=== PATIENT | female | born 1955 | race Caucasian/White ===

== ENCOUNTER 2022-04-02 21:27 | Emergency (ER) | payer MEDICARE, SELFPAY ==
[2022-04-02 21:29] VITALS: BP 104/80; PULSE 140; RESP 16; TEMP 36.7; O2SAT 98; BMI 22.7
--- NOTE | 2022-04-02 22:05 | CT_ITS ---
STUDY: CT ABDOMEN AND PELVIS WITH CONTRAST REASON FOR EXAM: Female, 66 years old. Left lower quadrant pain. Question diverticulitis. RADIATION DOSAGE (If Supplied By Facility): CTDIvol = ( 15.64 ) mGy, DLP = ( 846.62 ) mGycm TECHNIQUE: Transaxial images were obtained from the dome of the diaphragm to the symphysis pubis without oral contrast. IV 100mL Isovue-300 was administered. Sagittal and coronal images were reconstructed. Individualized dose optimization techniques were used for this CT. COMPARISON: None. FINDINGS: The visualized lung bases are unremarkable. The visualized portions of the heart are within normal limits. Normal liver. Normal gallbladder and extrahepatic biliary system. Normal spleen. Normal pancreas. Normal bilateral adrenal glands. Normal right kidney. Normal left kidney. Normal visualized stomach. Normal small intestine. Is sigmoid diverticula with associated wall thickening and stranding of the mesentery consistent with uncomplicated diverticulitis. There is no abscess or perforation. The proximal colon is unremarkable. There is non-visualization of the appendix. There is diffuse atherosclerotic calcification of the abdominal aorta, without a demonstrated aneurysm. Normal inferior vena cava. Normal retroperitoneum. Thick walled urinary bladder. Fibroid uterus. No adnexal mass or pelvic lymphadenopathy. No free air or free fluid is within the peritoneal cavity Small umbilical hernia of omental fat. The abdominal wall is otherwise unremarkable degenerative changes of the lumbar spine. There is mild anterolisthesis of L4 and L5 without pars defect. CT/Abdomen/Pelvis W IV Cont ONLY IMPRESSION: 1. Sigmoid diverticulitis without complication. 2. Fibroid uterus. 3. Mild degenerative changes of the lumbar spine. 4. Atherosclerotic changes of the aorta without dissection or aneurysm. Electronically Signed: Jaime Mejia DO at 23:35 EDT Reading Location ID and State: [address] [place] [address] Tel [phone], Service support ,
[2022-04-02 22:21] LABS: Absolute Lymphocyte Count 0.93 X10^3/uL (0.83-4.51); Basophil# 0.04 X10^3/uL; Basophil% 0.3 % (0-1); Eosinophil# 0.03 X10^3/uL; Eosinophils% 0.2 % (0-5); Hematocrit 42.5 % (37-47); Hemoglobin 14.5 g/dL (12.0-15.0); Lymphocyte # 0.93 X10^3/ul (0.83-4.51); Lymphocyte % 6.4 % (19-41); Mean Corp Hgb Conc 34.1 g/dL (32-36); Mean Corpuscular Hgb 32.9 pg (27.0-32.0); Mean Corpuscular Volume 96.4 fL (81-99); Mean Platelet Vol. 8.7 fl (6.2-12.0); Monocyte# 1.32 X10^3/uL; Monocyte% 9.1 % (0-10); NRBC Flagged by Analyzer 0 % (0-5); Neutrophil # 12.01 X10^3/uL (2.7-7.7); Neutrophil % 83.2 % (47-70); Platelet Count 299 K/mm3 (150-450); RBC Distribution Width CV 12.2 % (11.6-14.6); RBC Distribution Width SD 43.1 fl (35.1-43.9); Red Blood Count 4.41 M/mm3 (4.2-5.4); White Blood Count 14.4 K/mm3 (4.4-11.0)
[2022-04-02] MEDS: Ondansetron 4 MG/2 ML Vial IV (22:24)
[2022-04-02] MEDS: 0.9% Normal Saline 1,000 ML 999 ML IV ×2 (22:24→23:52)
[2022-04-02] MEDS: Morphine 4 MG/ML Syringe IV (22:25)
[2022-04-02 22:38] LABS: AST(SGOT) 19 U/L (15-37); Alanine Aminotransfer ALT/SGPT 22 U/L (13-56); Albumin, Serum 2.8 g/dL (3.2-5.0); Alkaline Phosphatase 76 U/L (45-117); Anion Gap 13 (5-15); BUN 11 mg/dL (7-18); BUN/Creat Ratio 15.2 RATIO (10-20); Bilirubin, Direct 0.26 mg/dL (0.00-0.30); Calcium,Total 8.7 mg/dL (8.5-10.1); Chloride 91 mmol/L (98-107); Creatinine, Serum 0.72 mg/dL (0.55-1.02); EST Glomerular Filtration Rate 86 mL/min (>60); Est Glom Filt Rate - Afr Amer 103 mL/min (>60); Estimated Creatinine Clearance 53.81 ml/min; Globulin 4.5 g/dL (2.2-4.2); Glucose 92 mg/dL (74-106); Lipase 69 U/L (73-393); Potassium 3.6 mmol/L (3.5-5.1); Protein, Total 7.3 g/dL (6.4-8.2); Sodium Level 126 mmol/L (136-145)
--- NOTE | 2022-04-02 22:59 | EX.ED.DYSGE1 ---
HPI History of Present Illness Chief Complaint: Abd Pain Narrative Narrative: Patient is a 66-year-old female who does not go to the doctor and therefore has no reported medical or surgical history. She states that she had 6 days of constipation which is not normal for her. She states that she had her sister then come over and they did an enema at home. She states following this she had loose stool/diarrhea and also noticed pain in the lower abdomen greatest in the left lower quadrant. She states the pain has been persistent for the past 24 hours and secondary to this she comes in for evaluation [facility] Medical History no medical history no medical history Home Medications ciprofloxacin HCl 750 mg tablet 750 mg PO BID 7 days #14 tabs 04/03/22 [Rx Last Taken Unknown] hydrocodone-acetaminophen 5-325mg 5mg-325mg 1 tab PO Q6H PRN pain 3 days #12 tabs 04/03/22 [Rx Last Taken Unknown] metronidazole 500 mg tablet 500 mg PO TID 7 days #21 tabs 04/03/22 [Rx Last Taken Unknown] Allergy/AdvReac Type Severity Reaction Status Date / Time No Known Allergies Allergy Verified 04/02/22 21:32 Social History Smoking Status: Current every day smoker tobacco type: cigarettes ROS ROS ED Constitutional Constitutional ED: Denies chills or fever(s) ENT ENT ED: Denies sore throat Cardiovascular Cardiovascular: Denies chest pain Respiratory/Chest Respiratory/Chest: Denies cough or dyspnea Gastrointestinal Gastrointestinal: Reports abdominal pain, constipation and diarrhea; Denies nausea or vomiting Genitourinary Genitourinary ED: Denies dysuria Musculoskeletal Musculoskeletal: Denies myalgias Integumentary Denies rash Neurologic Neurologic: Denies headache(s) Hematologic/Lymphatic Hematologic/Lymphatic: Denies easy bleeding or easy bruising EXAM Physical Exam Const Vital Signs: 04/02/22 21:29 04/02/22 23:22 04/03/22 01:45 Temperature 98.1 F 98 F Temperature Source Temporal Oral Pulse Rate 140 H 108 H 85 Respiratory Rate 16 18 18 Blood Pressure 104/80 98/64 Blood Pressure Mean 88 75 Pulse Ox 98 97 96 Oxygen Delivery Method Room Air Room Air Positive well nourished and well developed General Appearance ED: well developed HEENT Reports dry mucous membranes Mouth ED: Yes dry mucous membranes Mouth: dry mucous membranes Eyes PERRL and EOMs intact bilaterally Neck supple Resp normal respiratory effort and clear to auscultation bilaterally Cardio regular rhythm Rate: tachycardic and other Other Details: Tachycardic rate with regular rhythm. Radial pulses are plus 2 out of 4 bilaterally are equal and symmetric GI non-distended GI Narrative: Abdomen is soft and nondistended with hypoactive bowel sounds. There is pain with palpation of the lower abdomen diffusely greatest in the left lower quadrant without voluntary guarding or rigidity. No pulsatile mass or fluid wave Palpation: soft Back/Spine no CVA tenderness Extremity normal to inspection Neuro oriented x3 and CN's II-XII intact bilaterally Sensorium / Orientation: alert Psych mental status grossly normal Skin no rashes or lesions noted Skin Narrative: Skin turgor slightly increased MDM MDM MDM Narrative Medical decision making narrative: Patient presented to the ER tachycardic but I felt this was secondary to pain and mild dehydration. Therefore she was started on IV fluids and given pain medication and her heart rate reduced to a normal value. Her history of constipation with left lower quadrant pain is most consistent with diverticulitis. As she has no known history of this I did elect to perform basic laboratory studies as well as CT scan. Patient's white count is elevated at 14.4 and lactic acid is also bumped at 3.5 otherwise there is no clinically significant changes. The patient CT scan confirmed acute diverticulitis without obstruction or perforation or abscess. On reevaluation after given 2 L of fluid as well as antibiotics and pain medication patient reports feeling better and her vital signs have normalized. Therefore at this time I do not feel there is need for admission to the hospital as she has uncomplicated diverticulitis and improvement of symptoms with treatment. Therefore she will be given prescriptions for Cipro and Flagyl and discharged home and agrees to return if symptoms fail to improve or worsen despite outpatient therapy. Lab Data Attestation: I reviewed the patient's lab results. Labs: Laboratory Results - last 24 hr 04/02/22 04/02/22 04/02/22 00:44 22:12 22:12 WBC 14.4 H RBC 4.41 Hgb 14.5 Hct 42.5 MCV 96.4 MCH 32.9 H MCHC 34.1 RDW Std Deviation 43.1 RDW Coeff of Erne 12.2 Plt Count 299 MPV 8.7 Immature Gran % (Auto) 0.800 Neut % (Auto) 83.2 H Lymph % (Auto) 6.4 L [place] % (Auto) 9.1 Eos % (Auto) 0.2 Baso % (Auto) 0.3 Absolute Neuts (auto) 12.0 H Absolute Lymphs (auto) 0.93 Nucleated RBC % 0 Sodium 126 L Potassium 3.6 Chloride 91 L Carbon Dioxide 22.0 Anion Gap 13 BUN 11 Creatinine 0.72 Estim Creat Clear Calc 53.81 Est GFR (MDRD) Af Amer 103 Est GFR (MDRD) Non-Af 86 BUN/Creatinine Ratio 15.2 Glucose 92 Lactic Acid Calcium 8.7 Total Bilirubin 0.80 Direct Bilirubin 0.26 AST 19 ALT 22 Alkaline Phosphatase 76 Total Protein 7.3 Albumin 2.8 L Globulin 4.5 H Lipase 69 L Urine Color Yellow Urine Clarity Clear Urine pH 5.0 Ur Specific [place] 1.010 Urine Protein 15 H Urine Glucose (UA) Normal Urine Ketones 50 H Urine Occult Blood 10 H Urine Nitrite Negative Urine Bilirubin Negative Urine Urobilinogen Normal Ur Leukocyte Esterase 25 H Urine RBC 0-5 SEEN Urine WBC 0-5 SEEN Ur Squamous Epith Cells 0-5 SEEN Urine Bacteria 0 SEEN Hyaline Casts 0-5 SEEN Urine Mucus 0 SEEN 04/02/22 22:12 WBC RBC Hgb Hct MCV MCH MCHC RDW Std Deviation RDW Coeff of Rene Plt Count MPV Immature Gran % (Auto) Neut % (Auto) Lymph % (Auto) [place] % (Auto) Eos % (Auto) Baso % (Auto) Absolute Neuts (auto) Absolute Lymphs (auto) Nucleated RBC % Sodium Potassium Chloride Carbon Dioxide Anion Gap BUN Creatinine Estim Creat Clear Calc Est GFR (MDRD) Af Amer Est GFR (MDRD) Non-Af BUN/Creatinine Ratio Glucose Lactic Acid Cancelled Calcium Total Bilirubin Direct Bilirubin AST ALT Alkaline Phosphatase Total Protein Albumin Globulin Lipase Urine Color Urine Clarity Urine pH Ur Specific [place] Urine Protein Urine Glucose (UA) Urine Ketones Urine Occult Blood Urine Nitrite Urine Bilirubin Urine Urobilinogen Ur Leukocyte Esterase Urine RBC Urine WBC Ur Squamous Epith Cells Urine Bacteria Hyaline Casts Urine Mucus Radiography Diagnostic Testing: Clinical Impression(s) from Imaging Studies Abdomen/Pelvis CT 04/02/22 22:05 IMPRESSION: 1. Sigmoid diverticulitis without complication. 2. Fibroid uterus. 3. Mild degenerative changes of the lumbar spine. 4. Atherosclerotic changes of the aorta without dissection or aneurysm. Electronically Signed: Jaime Mejia DO at 23:35 EDT Reading Location ID and State: [address] [place] [address] Tel [phone], Service support , Discharge Plan Triage Chief Complaint: Abd Pain ED Provider: Jose Alfredo Fernández Dx/Rx/DC Orders Clinical Impression: Acute diverticulitis Instructions: ED Diverticulitis Prescriptions: New ciprofloxacin HCl 750 mg tablet 750 mg PO BID 7 Days Qty: 14 0RF metronidazole 500 mg tablet 500 mg PO TID 7 Days Qty: 21 0RF hydrocodone-acetaminophen 5-325 mg tablet 1 tab PO Q6H PRN (Reason: pain) 3 Days Qty: 12 0RF Primary Care Provider: Care Physician,No Primary Referrals: Jarrell Woods MD [STAFF PHYSICIAN] - 3-5 Days if not improving Care Physician,No Primary [Primary Care Provider] - Activity Restrictions/Additional Instructions: Please take your antibiotics as directed to resolve your intestinal infection. If you are having worsening of symptoms or any further concerns please return to the ER for repeat evaluation Disposition Disposition: Home, Self Care Discharge Date/Time: 04/03/22 01:48
[2022-04-02] MEDS: Ciprofloxacin 400 MG/200 ML BAG 200 MG IV (23:19)
[2022-04-02 23:22] VITALS: BP 98/64; PULSE 108; RESP 18; TEMP 36.6; O2SAT 97
[2022-04-03] MEDS: metroNIDAZOLE 500 MG/100 ML BAG 100 MG IV (00:28)
[2022-04-03 00:48] LABS: Bacteria 0 SEEN /hpf (None Seen); Mucous, Urine 0 SEEN /hpf (<or=2+)
[2022-04-03 00:54] LABS: Color, Urine Yellow (Yellow); Glucose, Dipstick Normal (Normal); Ketone-Dipstick 50 mg/dl (Negative); Leukocyte Esterase-Dipstick 25 /ul (Negative); Nitrite-Dipstick Negative (Negative); Occult Blood-Urine 10 /ul (Negative); Protein-Dipstick 15 mg/dl (Negative); Urine Bilirubin Dipstick Negative (Negative); Urine Clarity Clear (Clear); Urine Urobilinogen Normal (Normal)
[2022-04-03 01:17] LABS: Hyaline Cast 0-5 SEEN /lpf (0-5); Red Blood Cells-Urine 0-5 SEEN /hpf (0-5); Squamous Epithelial Cells - UA 0-5 SEEN /hpf (5-10); White Blood Cells 0-5 SEEN /hpf (0-5)
[2022-04-03 01:45] VITALS: PULSE 85; RESP 18; O2SAT 96
--- NOTE | 2022-04-03 20:27 | ED.RN ---
Lab calls with + blood culture results. Dr Scruggs reviewed chart and states patient is already on antibiotics to cover this, no change in treatment. Patient was notified, all questions answered.
== END 2022-04-03 01:48 | disposition home or self-care (01) ==
PROVIDERS: Emergency Provider Emergency Medicine; Visit Provider Emergency Medicine
DX: K57.32 Diverticulitis of large intestine without perforation or abscess without bleeding (principal); F17.210 Nicotine dependence, cigarettes, uncomplicated
CPT/HCPCS: 74177; 80048; 80076; 81001; 83605; 83690; 85025; 87040; 87149; 96365; 96366; 96367; 96375; 99282; J7030; Q9967; A4216; J0744; J2405